=== PATIENT | female | born 1965 | race Caucasian/White ===

== ENCOUNTER 2018-03-14 10:01 | Inpatient (IN) | payer OTHER ==
[~2018-03-14] VITALS: Ht 152.4 cm; Wt 53.5 kg
--- NOTE | 2018-03-14 11:16 | NUR ---
PRE ASSESSMENT: A 52 yo female in intake. She is A/O X 4. She presents with guarded affect and anxious mood. She reports drinking 750 ml of Vodka daily in this pattern for 6 months. Sometimes she will switch to Whiskey (drinking the same amount daily). Her gait is steady. BP 135/86 P 93 R 16 o2Sat 98%. She reports medical hx. of Migraines and ADHD. She has been taking Ritalin 20 mg PO Tid and Concerta 54 mg PO BID for 25 years at home. She also takes Imitrex PRN at home. She did not bring meds into unit. She states the ETOH is causing her problems with her relationship with her boyfriend and her son and causing problems with her job. She states she cannot stop on her own and needs help. Addendum: 03/14/18 at 1223 by KEENAN VAUGHAN RN Correction: daughter not son
[2018-03-14] MEDS ORDERED: METH54TA PO (12:21)
[2018-03-14] MEDS ORDERED: METH20TA PO (12:21)
[2018-03-14] MEDS ORDERED: NICO2GUM38 BC (12:21)
[2018-03-14] MEDS ORDERED: ONDANSETRON ODT 4 MG TAB.RAPDIS SL PRN ×2 (12:30→13:00)
[2018-03-14] MEDS ORDERED: SUMA100T PO (12:32)
--- NOTE | 2018-03-14 12:32 | NUR ---
ADMISSION: Pt admitted for medically supervised withdrawal of Alcohol. She presents with guarded affect and anxious mood. She reports trying to stop drinking on her own and states she cannot go more than one day because she gets nauseous ,anxious ,agitated and tremulosu so she will try to just drink less but is unsuccessful. She reports blacking out on occasion when she drinks. She denies Sz hx. She states she lives with her boyfriend and son. She is well dressed and well groomed. She breaks down and sobs at times during assessment and when asked if there is something I can do for her she replies' Please take me back in time". She reports getting terminated from her job because of her drinking yesterday. Fine tremors noted to BUE. She c/o nausea and anxiety. CIWA 11 on admission. BP 135/86 P 93 R 16 T 98.2 O2 sat 98% Substance Use: 1. ETOH-750 ml of Vodka or Whiskey daily. Last drank last night 03/13 at 11pm [place] time. She has been drinking for 35 years and in this pattern for 6 months. 2. Ritalin 20 mg po 3 x daily for 25 years. Last used 20 mg po this am for ADHD and she also reports Concerta 54 mg po 2 x daily for ADHD x 25 years. Last used 54 mg this am. She states her relationships with her partner and daughter are suffering due to her drinking and a bottle of Vodka was found by coworker in her locker at her job and she was terminated. She states she trys to hide her drinking from friends and family and cannot take living with a " monkey on her back " anymore. She states her motivation for quitting ETOH is o be a better parent,partner and employee and a better person. She reports that she has never been to detox or treatment before. This is her first time. Medical/Psych. Her medical hx includes Migraines and ADHD. She brought Nicotine Gum and Benadryl into facility . She states she chews 2mg nicotine gum q 1 hr. as she quit smoking cigarettes 5 months ago. She reports taking Imitrex 100 mg PO PRN for Migraines and did not bring it to facility along with the Ritalin and Concerta mentioned above. The Benadryl she uses for sleep on occasion.She denies Psych. hx and denies any 5150s in her past. She denies S/I and H/I . She denies any suicide attempts in the past. Oriented Pt to staff and unit. Assured Pt that nursing is available 07/01. Administered Zofran 4mg ODT for nausea. Will provide safe and supportive environment. Addendum: 03/14/18 at 1607 by KEENAN VAUGHAN RN Pt reports having an edible (1/4 of a marijuana cookie) 2 days ago. She reports using marijuana edibles about once a month.
[2018-03-14] MEDS ORDERED: THIAMINE HCL 200 MG/2 ML VIAL IM ONE (13:00)
[2018-03-14] MEDS: FOLIC ACID 1 MG TABLET PO SCH (13:00)
[2018-03-14] MEDS ORDERED: DIAZEPAM 5 MG TABLET PO PRN (13:00)
[2018-03-14] MEDS ORDERED: DICYCLOMINE HCL 20 MG TABLET PO PRN (13:00)
[2018-03-14] MEDS ORDERED: LORAZEPAM 2 MG/1 ML VIAL IM PRN (13:00)
[2018-03-14] MEDS: MULTIVITAMINS,THERAPEUTIC TABLET PO SCH (13:00)
[2018-03-14] MEDS: THIAMINE HCL 100 MG TABLET PO SCH (13:00)
[2018-03-14] MEDS ORDERED: MAG HYDROX/AL HYDROX/SIMETH 30 ML LIQUID UDC PO PRN (13:00)
[2018-03-14] MEDS ORDERED: diphenhydrAMINE 50 MG CAPSULE PO PRN (13:00)
[2018-03-14] MEDS ORDERED: DIAZEPAM 10 MG TABLET PO PRN (13:00)
[2018-03-14] MEDS ORDERED: 3 DAY TAPER OF VALIUM-SERENITY PROTOCOL PO PRN (13:00)
[2018-03-14] MEDS ORDERED: LOPERAMIDE HCL 2 MG CAPSULE PO PRN ×2 (13:00)
[2018-03-14] MEDS ORDERED: MAGNESIUM HYDROXIDE 30 ML LIQUID UDC PO PRN (13:00)
[2018-03-14 13:05] LABS: *URINE HCG, QUAL NEGATIVE (NEGATIVE)
[2018-03-14] MEDS ORDERED: DIPH25CA83 PO (13:05)
[2018-03-14 13:25] LABS: *AMPHETAMINE, URINE NEGATIVE (NEGATIVE); *BARBITURATE, URINE NEGATIVE (NEGATIVE); *CANNABINOID, URINE POSITIVE (NEGATIVE); *COCCAINE, URINE NEGATIVE (NEGATIVE); *OPIATE, URINE NEGATIVE (NEGATIVE); *PHENCYCLIDINE SCREEN,URINE NEGATIVE (NEGATIVE)
[2018-03-14] MEDS: NICOTINE POLACRILEX 4 MG GUM-PK OF TEN BC PRN ×3 (13:34→21:07)
[2018-03-14] MEDS: DIAZEPAM 10 MG TABLET PO PRN ×2 (13:34→18:17)
--- NOTE | 2018-03-14 13:35 | NUR ---
PRN Valium 10 mg PO given for CIWA 11. She reports anxiety,agitation and restlessness. Will monitor effectiveness.
[2018-03-14] MEDS: DIAZEPAM 10 MG TABLET PO SCH ×2 (14:00→21:04)
--- NOTE | 2018-03-14 14:31 | NUR ---
CIWA deferred. Pt is asleep with respirations even and unlabored.
--- NOTE | 2018-03-14 14:35 | NUR ---
CIWA deferred to reassess PRN. Pt is asleep. Respirations even and unlabored.
[2018-03-14 16:00] VITALS: BP 114/71
[2018-03-14] MEDS ORDERED: SUMATRIPTAN SUCCINATE PO PRN (16:30)
[2018-03-14 17:45] LABS: BASOPHILS % (AUTO) 0.3 % (0.0-2.0); EOSINOPHILS % (AUTO) 0.8 % (0.0-7.0); HEMATOCRIT 37.3 % (31.2-41.9); HEMOGLOBIN 13.1 g/dL (10.9-14.3); LYMPHOCYTES # (AUTO) 2.1 K/uL (20.0-40.0); LYMPHOCYTES % (AUTO) 37.1 % (20.5-51.5); MEAN CORPUSCULAR HEMOGLOBIN 32.4 uug (24.7-32.8); MEAN CORPUSCULAR HGB CONC 35 g/dL (32.3-35.6); MEAN CORPUSCULAR VOLUME 92.4 fL (75.5-95.3); MONOCYTES # (AUTO) 0.6 K/uL (2.0-10.0); MONOCYTES % (AUTO) 10.6 % (0.0-11.0); NEUTROPHILS # (AUTO) 2.9 K/uL (1.8-8.9); NEUTROPHILS % (AUTO) 51.2 % (38.5-71.5); PLATELET COUNT (AUTO) 306 K/uL (179-408); RED BLOOD CELL COUNT(AUTO) 4.03 MIL/uL (3.63-4.92); WHITE BLOOD COUNT (AUTO) 5.7 K/uL (3.8-11.8)
[2018-03-14 18:08] LABS: ETHANOL < 3 MG/DL (0-0)
[2018-03-14 18:09] LABS: ALANINE AMINOTRANSFERASE 53 U/L (14-59); ALKALINE PHOSPHATASE 73 U/L (50-136); AMYLASE 19 U/L (25-115); ASPARTATE AMINOTRANSFERASE 31 U/L (15-37); BILIRUBIN,TOTAL 0.4 mg/dL (0.2-1.0); CARBON DIOXIDE 27 mmol/L (21-32); CHLORIDE 108 mmol/L (98-107); CREATININE 0.9 mg/dL (0.6-1.3); GLUCOSE 137 mg/dL (74-106); LIPASE 102 U/L (73-393); POTASSIUM 4.1 mmol/L (3.5-5.1); TOTAL PROTEIN, SERUM 6.7 g/dL (6.4-8.2); UREA NITROGEN, BLOOD 16 mg/dL (7-18)
--- NOTE | 2018-03-14 18:20 | NUR ---
PRN Valium 10 mg PO PRN given for CIWA 12. She reports anxiety,sweats,tremors and restlessness. Will monitor effectiveness of PRN.
[2018-03-14 18:21] LABS: THYROID STIMULATING HORMONE 2.199 mIU/mL (0.358-3.740)
--- NOTE | 2018-03-14 19:09 | NUR ---
END OF SHIFT: Pt is a newly admitted for ETOH withdrawal. She presents anxious and sad and has periodic crying jags. [id number] mg PO PRN was given this afternoon for CIWA 11 and she fell asleep so CIWA deferred. She became agitated and anxious at 1815 CIWA 12 Valium 10 mg PO PRN given. Pt is attending 12 step meeting. CIWA reassessment endorsed to tumbling barrel painter nurse. Will [pass shift report to oncoming night nurse.
[2018-03-14] MEDS ORDERED: SUMATRIPTAN SUCCINATE 50 MG TABLET PO PRN ×2 (19:30)
[2018-03-14 20:00] VITALS: BP 135/94
--- NOTE | 2018-03-14 20:15 | NUR ---
Start of Shift Received report on a 52 year old female admitted to [facility] for medically supervised withdrawal from ETOH. Last CIWA 17 at 1600. Currently on day 1 of 3 day Valium Taper. Pt in room awake, alert, and oriented. Pt flushed, anxious, worried, feelings of guilt/shame, low self-esteem, isolative and withdrawn. Respirations even and unlabored. Will continue to monitor.
[2018-03-14] MEDS: TRAZODONE 50 MG TABLET PO PRN (21:04)
--- NOTE | 2018-03-14 21:04 | NUR ---
PRN Trazodone/ Nicotine Gum Pt complains of not being able to sleep. Requested Trazodone and her nicotine gum. Given per order. Will monitor effect.
--- NOTE | 2018-03-14 22:04 | NUR ---
PRN Reassess Effective. Pt resting with eyes closed. Respirations even and unlabored. Will cont to monitor
[2018-03-15 00:34] VITALS: BP 97/55
--- NOTE | 2018-03-15 00:39 | NUR ---
CIWA deferred, pt in bed resting, eyes closed and snoring. Respirations even and unlabored. Vitals rendered. Continue to monitor.
[2018-03-15 04:22] VITALS: BP 98/65
--- NOTE | 2018-03-15 04:24 | NUR ---
CIWA CIWA deferred. Pt resting, eyes closed. Respirations even and unlabored. Continue to monitor.
--- NOTE | 2018-03-15 06:56 | NUR ---
End of Shift Will endorse care of 52 year old female admitted to [facility] for medically supervised withdrawal from ETOH. Pt received PRN Trazodone x 1 and Nicotine gum x1. Last CIWA 17 at 1999. Currently on day 2 of 3 day Valium Taper. PO intake 700ml, void x 1, BM x 0, and slept x 8 hours. Pt in bed resting with eyes closed. Respirations even and unlabored.
--- NOTE | 2018-03-15 08:15 | NUR ---
BEGINNING OF SHIFT Patient endorsement report received from r d manager nurse, all pertinent information was discussed. Patient admitted yesterday with admitting dx: etoh withdrawal. patient with ongoing Valium taper as ordered, patient received awake, alert and oriented x4, educated regarding plan of care for the day and medication regimen with good verbal understanding. Per r d manager patient slept for 8 hours, last CIWA score of: 4. Received PRN: Trazodone, during r d manager. Patients safety measures are in place, will continue to monitor closely.
[2018-03-15 08:42] VITALS: BP 112/76
[2018-03-15] MEDS: DIAZEPAM 5 MG TABLET PO SCH ×3 (08:45→21:48)
[2018-03-15] MEDS: MULTIVITAMINS,THERAPEUTIC TABLET PO SCH (08:45)
[2018-03-15] MEDS: THIAMINE HCL 100 MG TABLET PO SCH (08:45)
[2018-03-15] MEDS: FOLIC ACID 1 MG TABLET PO SCH (08:45)
[2018-03-15] MEDS: TUBERCULIN,PURIF.PROT.DERIV. 5 TU/0.1 ML TEST ID ONE ×2 (08:47→08:54)
[2018-03-15] MEDS: NICOTINE POLACRILEX 4 MG GUM-PK OF TEN BC PRN ×4 (08:55→20:13)
--- NOTE | 2018-03-15 08:55 | NUR ---
NICOTINE GUM Patient requested smoking cessation, administered nicotine gum as ordered.
[2018-03-15] MEDS ORDERED: PNEUMOCOCCAL 23-VAL P-SAC VAC 0.5 ML VIAL IM ONE (09:00)
--- NOTE | 2018-03-15 09:00 | NUR ---
CIWA ASSESSMENT Patient presented with the following s/sx of withdrawal: agitation, anhedonia, anxiety, depression, diaphoresis, difficulty concentrating, emotional volatility, flushed face, generalized discomfort, hypervigilance, increased emotional amplitude, parasthesias with tactile disturbances of extremities, sensitivity to light and sound, and tremors. Patient with CIWA score of: 18, MD notified. Will continue to monitor.
--- NOTE | 2018-03-15 13:00 | NUR ---
CIWA ASSESSMENT Continues to present with the following s/sx of withdrawal: agitation, anhedonia, anxiety, depression, diaphoresis, difficulty concentrating, emotional volatility, flushed face, generalized discomfort, hypervigilance, increased emotional amplitude, parasthesias with tactile disturbances of extremities, sensitivity to light and sound, and tremors. Patient with CIWA score of: 18, MD notified. Will continue to monitor. Safety measures in place.
[2018-03-15 13:09] VITALS: BP 137/84
[2018-03-15] MEDS ORDERED: MAGNESIUM HYDROXIDE 30 ML LIQUID UDC PO ONE (13:15)
--- NOTE | 2018-03-15 14:50 | NUR ---
NICOTINE GUM Patient requested smoking cessation, administered nicotine gum as ordered.
--- NOTE | 2018-03-15 17:22 | NUR ---
CIWA ASSESSMENT Patient noted with: agitation, anhedonia, anxiety, depression, diaphoresis, difficulty concentrating, emotional volatility, flushed face, generalized discomfort, hypervigilance, increased emotional amplitude, parasthesias with tactile disturbances of extremities, sensitivity to light and sound, and tremors. Patient with CIWA score of: 18, notified. Continues on Valium taper as ordered, will continue to monitor.
[2018-03-15 17:52] VITALS: BP 132/74
--- NOTE | 2018-03-15 18:56 | NUR ---
END OF SHIFT Patient continues under close observation. Continues with ongoing Valium taper as ordered, currently on day 2 of scheduled taper. Patient alert and oriented x4 during shift. Noted with flat affect, avoidant eye contact and sad facial expression. Patient has anxious/depressed mood. Encouraged to express self and provided with calming reassurance as needed. Patient also encouraged to attend group therapies/sessions to learn new coping skills to prevent relapse. During shift patient noted exhibiting the following s/sx of withdrawal: agitation, anhedonia, anxiety, depression, diaphoresis, difficulty concentrating, emotional volatility, flushed face, generalized discomfort, hypervigilance, increased emotional amplitude, paraesthesias with tactile disturbances of extremities, sensitivity to light and sound, and tremors. Patient with last CIWA score of: 18, MD was notified of patients CIWA score during shift. Administered PRN: nicotine gum x3, and one time order of milk of magnesium as ordered, medication effective, patient reported to have bowel movement. Encouraged patient to increase PO fluid intake as tolerated. Safety measures are in place. Patient endorsed to weight shifter nurse, all pertinent information was discussed.
--- NOTE | 2018-03-15 19:50 | NUR ---
Start of Shift Note Received a 52 y/o female px, admitted for medically supervised withdrawal from ETOH. Px is also using Ritalin and Concerta. Px was placed on 3 day Valium taper started on 03/14/2018. Px is tolerating it. Last reported CIWA 18 by AM shift nurse. During the rounds at 1950, px is awake inside her room standing. Px appears anxious and depressed. Px stated that her anxiety is 6/10 and she complains of sweats at night. Mild bilateral hand tremors noted on extended arms. Bed on lowest position, side rails up 2x and call light within reach. Well continue to monitor.
[2018-03-15 20:00] VITALS: BP 141/91
--- NOTE | 2018-03-15 20:00 | NUR ---
CIWA 11 Upon assessment, px appears anxious and depressed. Px stated that her anxiety is 6/10 and she complains of sweats at night. Mild bilateral hand tremors noted on extended arms. will continue to monitor
--- NOTE | 2018-03-15 20:13 | NUR ---
PRN Nicotine Gum Px received 1 Nicotine gum as requested by the px.
[2018-03-15] MEDS: TRAZODONE 50 MG TABLET PO PRN (22:14)
[2018-03-16] VITALS: BP 132/84
[2018-03-16 04:00] VITALS: BP 122/77
--- NOTE | 2018-03-16 04:00 | NUR ---
CIWA deferred CIWA deferred at 0000 and 0400 due to the px is asleep. To asses if the px is awake per doctor's order, will continue to monitor
--- NOTE | 2018-03-16 07:05 | NUR ---
End of Shift Note During the shift at 2012, she received 1 nicotine gum. At 2213, she received Trazodone 50 mg PO for insomnia. It was effective. Oral intake is 1200 ml, voided 3x, No BM. Px slept for 8 hours. Last CIWA 11 at 1999. Bed on lowest position, side rails up 2x and call light within reach. Well continue to monitor. Px endorsed to AM shift nurse.
--- NOTE | 2018-03-16 07:50 | NUR ---
START OF SHIFT: Received Pt A/O X 4. She presents with irritable mood and congruent affect. She reports anxiety,restlessness ,fatigue and a migraine h/a 7/10 on scale. PRN Imitrex administered as ordered. She continues on modified Valium taper to manage s/s of w/d. CIWA 12. Encouraged increased fluids to assist in facilitating detox process. Encouraged group attendance to improve coping skills and prevent relapse. Will continue to monitor and offer support.
[2018-03-16 08:00] VITALS: BP 107/60
[2018-03-16 08:29] LABS: CREATININE 0.9 mg/dL (0.6-1.3); POTASSIUM 4.5 mmol/L (3.5-5.1)
--- NOTE | 2018-03-16 08:50 | NUR ---
PRN Imitrex effective. H/A 010
[2018-03-16] MEDS: DIAZEPAM 5 MG TABLET PO SCH ×2 (09:12→20:33)
[2018-03-16] MEDS: FOLIC ACID 1 MG TABLET PO SCH (09:12)
[2018-03-16] MEDS: MULTIVITAMINS,THERAPEUTIC TABLET PO SCH (09:12)
[2018-03-16] MEDS: THIAMINE HCL 100 MG TABLET PO SCH (09:13)
--- NOTE | 2018-03-16 10:25 | NUR ---
Therapist prompted client to attend all group therapy sessions and client stated that she would be attending.
[2018-03-16 11:07] LABS: HEPATITIS B SURFACE AG Negative (Negative)
[2018-03-16 12:00] VITALS: BP 107/51
[2018-03-16] MEDS: NICOTINE POLACRILEX 4 MG GUM-PK OF TEN BC PRN ×4 (12:13→20:33)
--- NOTE | 2018-03-16 14:33 | NUR ---
PRN Nicotine gum 4 mg given per Pt request
[2018-03-16 16:00] VITALS: BP 137/81
[2018-03-16] MEDS: HYDROXYZINE PAMOATE 25 MG CAPSULE PO PRN (17:08)
--- NOTE | 2018-03-16 18:50 | NUR ---
END OF SHIFT: Pt continues on modified Valium taper to manage s/s of w/d which include emotional lability,anxiety and intermittent sweats. Last CIWA 5. She was given PRN Nicotine gum x3 and Vistaril PRN 25 mg PO for anxiety X 1 and effective. She attends groups and interacts with peers. Will pass shift report to oncoming night nurse.
--- NOTE | 2018-03-16 19:40 | NUR ---
START OF SHIFT NOTE Rcvd report from outgoing nurse. Pt is a 52 y/o female A/O to person, place, time, and purpose. Pt was admitted for medically supervised withdrawal from ETOH. Pt is on day 3 of a 3 day Valium taper. Pt has been presenting w/ emotional volatility, anxiety, restlessness, body aches, headaches, and tremors. Pt states being emotional especially after group therapy sessions and has even cried. Pt was given emotional support and positive reinforcement. PRN Vistaril and Nicotine gum given and noted effective by outgoing nurse. Last CIWA 5 @ 1600. Call light is within reach. Pt will continue to be monitored and needs met.
[2018-03-16 20:12] VITALS: BP 137/86
--- NOTE | 2018-03-16 20:14 | NUR ---
CIWA ASSESSMENT CIWA 8. Pt has been presenting w/ emotional volatility, anxiety, restlessness, body aches, headaches, and tremors. V/S: T:97.9, P:114, RR:16, SPO2:100, BP:137/86.
[2018-03-16] MEDS: TRAZODONE 50 MG TABLET PO PRN (20:33)
[2018-03-16] MEDS: IBUPROFEN 400 MG TABLET PO PRN (20:33)
--- NOTE | 2018-03-16 20:33 | NUR ---
PRN TRAZODONE, MOTRIN, AND NICOTINE GUM ADMINISTRATION Trazodone 50mg given for sleep and agitation, Motrin 600mg given for headache, and Nicotine gum given for smoking cessation. Will reassess pt in 1 hr.
--- NOTE | 2018-03-16 21:33 | NUR ---
PRN TRAZODONE, MOTRIN, AND NICOTINE GUM REASSESSMENT Pt is in bed w/ her eyes closed. Pt's respirations are unlabored and even.
--- NOTE | 2018-03-17 00:12 | NUR ---
CIWA DEFERRED. V/S REFUSED Pt is in bed w/ her eyes closed. Pt's respirations are unlabored and even.
--- NOTE | 2018-03-17 07:12 | NUR ---
END OF SHIFT NOTE Endorsed pt to oncoming nurse. Pt is a 52 y/o female A/O to person, place, time, and purpose. Pt was admitted for medically supervised withdrawal from ETOH. Pt completed day 3 of a 3 day Valium taper. Pt continues presenting w/ emotional volatility, anxiety, restlessness, body aches, headaches, and tremors. Pt states being emotional especially after group therapy sessions and has even been criying. Pt was given emotional support and positive reinforcement. PRN Trazodone 50mg for sleep, Motrin 600mg for headache, and Nicotine gum were given and noted effective. Pt denies any S/I or H/I. Pts fluid intake was 1055ml and she slept for 10hrs. Last CIWA 8 @ 1999. Call light is within reach.
--- NOTE | 2018-03-17 07:58 | NUR ---
START OF SHIFT: Received Pt A/O X 4. She presents with anxious mood and congruent affect. She reports anxiety and restlessness. PRN Vistaril administered as ordered. She completed Valium taper last night. CIWA 7. Encouraged increased fluids to assist in facilitating detox process. Encouraged group attendance to improve coping skills and prevent relapse. Will continue to monitor and offer support.
[2018-03-17 08:00] VITALS: BP 100/60
[2018-03-17] MEDS: THIAMINE HCL 100 MG TABLET PO SCH (08:48)
[2018-03-17] MEDS: HYDROXYZINE PAMOATE 25 MG CAPSULE PO PRN ×2 (08:48→18:43)
[2018-03-17] MEDS: FOLIC ACID 1 MG TABLET PO SCH (08:48)
[2018-03-17] MEDS: MULTIVITAMINS,THERAPEUTIC TABLET PO SCH (08:48)
--- NOTE | 2018-03-17 09:00 | NUR ---
Pt states Vistaril was mildly effective in reducing anxiety.
[2018-03-17] MEDS: NICOTINE POLACRILEX 4 MG GUM-PK OF TEN BC PRN ×4 (09:55→18:43)
[2018-03-17 12:00] VITALS: BP 148/94
--- NOTE | 2018-03-17 12:15 | NUR ---
CIWA 6 a noon. She c/o mild anxiety,restlessness and a lack of energy.
--- NOTE | 2018-03-17 12:52 | NUR ---
Therapist prompted client to attend all group therapy sessions.
--- NOTE | 2018-03-17 13:46 | NUR ---
PRN GIVEN Pt requested for Nicotine Gum for smoking cessation. Nicotine Gum 4mg was given as ordered.
[2018-03-17] MEDS ORDERED: HYDR-3895 PO (14:04)
[2018-03-17] MEDS ORDERED: TRAZ-213 PO (14:04)
[2018-03-17 16:00] VITALS: BP 146/100
[2018-03-17 17:00] VITALS: BP 125/86
[2018-03-17] MEDS ORDERED: CLONIDINE HCL 0.1 MG TABLET PO PRN (17:15)
--- NOTE | 2018-03-17 17:15 | NUR ---
PRN Clonidine 0.1 mg PO PRN given for BP 146/100 99 .Will monitor effectiveness of PRN medication.
--- NOTE | 2018-03-17 18:15 | NUR ---
PRN Clonidine effective. BP 125/86 P 95 Will continue to monitor.
--- NOTE | 2018-03-17 18:52 | NUR ---
END OF SHIFT: Pt completed Valium taper . She c/o anxiety this morning and this afternoon Vistaril PRN given and effective both times. Last CIWA 6 She was given PRN Clonidine for increased BP this afternoon and it was effective. She attends groups and interacts with peers. She is scheduled for discharge in am tomorrow. Will pass shift report to [facility] night nurse. Addendum: 03/17/18 at 1919 by KEENAN VAUGHAN RN PRN Vistaril given at end of shift. Will endorse to monitor effectiveness of PRN to oncoming night nurse.
[2018-03-17 19:00] VITALS: BP 124/87
--- NOTE | 2018-03-17 19:00 | NUR ---
Start of Shift Received 52 year old female admitted 03/14/18 to [facility] for medically supervised withdrawal from ETOH. Pt completed a 3 day Valium taper, tolerated well. Last CIWA 6 @ 1600. Pt in room awake, alert, and oriented. Pt worried, anxious, depressed, feelings of guilt/shame, withdrawn, and isolative. Pt stated had nightmare last night and then had a hard time sleeping. Requesting Trazodone to be given as early as possible. Pt has planned discharge to [facility] in am. Bed down, side rails up x 2, and call [place] in reach. Continue to monitor
--- NOTE | 2018-03-17 19:43 | NUR ---
Reassess PRN Vistaril Pt states decreased anxiety. Positive effect.. Continue to monitor.
[2018-03-17 20:00] VITALS: BP 124/87
--- NOTE | 2018-03-17 20:00 | NUR ---
CIWA 6 Pt awake, alert, and oriented. Denies N/V, sweating/chills. Pt is anxious, withdrawn, isolative, and apprehensive about future.
[2018-03-17] MEDS: TRAZODONE 50 MG TABLET PO PRN (20:34)
--- NOTE | 2018-03-17 20:34 | NUR ---
PRN Trazodone Pt complain of difficulty sleeping and requested Trazodone. Given per odreder. Will monitor effectiveness.
[2018-03-17] MEDS: IBUPROFEN 400 MG TABLET PO PRN (20:40)
--- NOTE | 2018-03-17 20:40 | NUR ---
PRN Motrin Pt complain of right shoulder pain 5/. Requesting Motrin. Administered per order. Will monitor effectiveness.
--- NOTE | 2018-03-17 20:47 | NUR ---
Flu Vaccine Vaccine given right deltoid per protocol and pt request.
[2018-03-17] MEDS ORDERED: INFLUENZA VACCINE 2018-2019 0.5 ML DISP.SYRIN IM ONE (21:00)
--- NOTE | 2018-03-17 21:34 | NUR ---
Reassess PRN Trazodone Minimal effectiveness. Pt in room watching TV. Continue to monitor.
--- NOTE | 2018-03-17 21:40 | NUR ---
Reassess Motrin Pt states pain decreased 3/10. Continue to monitor.
--- NOTE | 2018-03-18 00:05 | NUR ---
CIWA deferred/Vitals refused Pt resting with eyes closed. Refused vitals. respirations even and unlabored. Will continue to monitor.
--- NOTE | 2018-03-18 04:16 | NUR ---
CIWA deferred/vitals refused Pt resting with eyes closed, CIWA deferred. Vitals refused. Respirations even and unlabored. Continue to monitor.
--- NOTE | 2018-03-18 06:38 | NUR ---
End of Shift Endorsing 52 year old female admitted 03/14/18 to [facility] for medically supervised withdrawal from ETOH. Pt completed a 3 day Valium taper 03/17/18, tolerated well. Last CIWA 6 @ 1999. Pt given PRN Motrin per order for complaint of right shoulder pain /10 with positive effect. Pt requested PRN Trazodone to sleep with positive effect. Pt resting in bed with eyes closed. Respirations even and unlabored. PO intake 1346 ml, voided x 5, BM x 0, and slept 7.5 hours. Pt has planned discharge to [facility] this am. Bed down, side rails up x 2, and call groves in reach.
--- NOTE | 2018-03-18 07:30 | NUR ---
Start Of Shift Received 52 y/o F admitted on 03/14/18 for medically supervised ETOH withdrawal. Pt has completed a 3 day taper yesterday 03/17/18 and is medically cleared to be discharged today to [facility]. Pt has bags packed and is dressed, states she is eager and ready to be discharged. Last CIWA 6 @1999. Pt was given trazodone, ibuprofen prns last night, slept 7.5 hrs. Side rails upx2, bed in lowest position. Call light is within reach. Will continue to monitor until discharge.
[2018-03-18 08:00] VITALS: BP 119/65
--- NOTE | 2018-03-18 08:00 | NUR ---
CIWA 6 Pt presents restlessness, anxiety and agitation. Pt is to be discharged this am, states she is ready and eager to go to the treatment center.
[2018-03-18] MEDS: MULTIVITAMINS,THERAPEUTIC TABLET PO SCH (09:17)
[2018-03-18] MEDS: FOLIC ACID 1 MG TABLET PO SCH (09:17)
[2018-03-18] MEDS: THIAMINE HCL 100 MG TABLET PO SCH (09:17)
[2018-03-18] MEDS: NICOTINE POLACRILEX 4 MG GUM-PK OF TEN BC PRN (09:18)
--- NOTE | 2018-03-18 09:48 | NUR ---
Discharge Note Pt is in stable condition, vs are wnl, respirations even and unlabored. Last CIWA 6. Pt has been given d/c instructions and pt verbalized understanding. Pt left the building at 0948 on 03/18/18 with all belongings, prescriptions, home meds, and d/c paperwork. Pt has been picked up by [employer] and has been taken to [facility].
== END 2018-03-18 09:48 | DRG 895 ==
LOC: SRC 10:01
PROVIDERS: ADMIT Family Medicine Addiction Medicine; ATTEND Family Medicine Addiction Medicine
PROC: HZ2ZZZZ Detoxification Services for Substance Abuse Treatment (ICD-10-PCS; principal; 2018-03-14)
PROC: HZ41ZZZ Group Counseling for Substance Abuse Treatment, Behavioral (ICD-10-PCS; 2018-03-15)
PROC: HZ31ZZZ Individual Counseling for Substance Abuse Treatment, Behavioral (ICD-10-PCS; 2018-03-17)
DX: F10.230 Alcohol dependence with withdrawal, uncomplicated (principal); Y90.9 Presence of alcohol in blood, level not specified; G43.909 Migraine, unspecified, not intractable, without status migrainosus; K59.00 Constipation, unspecified; F90.9 Attention-deficit hyperactivity disorder, unspecified type; Z79.899 Other long term (current) drug therapy; F41.9 Anxiety disorder, unspecified; R73.9 Hyperglycemia, unspecified; Z98.1 Arthrodesis status; Z80.1 Family history of malignant neoplasm of trachea, bronchus and lung; Z80.8 Family history of malignant neoplasm of other organs or systems; Z81.8 Family history of other mental and behavioral disorders; Z81.1 Family history of alcohol abuse and dependence
CPT/HCPCS: 36415; 70030-TC; 80307; 80349; 83690; 83735; 84443; 84703; 85025; 86580; 86592; 86705; 86803; 87340; 87806; 90686; 90732; G0480; J3411; Q0162